=== PATIENT | male | born 1995 | race Hispanic/Latino ===

== ENCOUNTER 2017-04-25 06:23 | Emergency (ER) | payer SELFPAY ==
[2017-04-25] MEDS ORDERED: Ketorolac Tromethamine 30 MG/ML VIAL ONE (07:02)
[2017-04-25 07:42] LABS: #Eosinphils 0.1 thou/uL (0.0-0.7); #Lymphocytes 1.3 thou/uL (1.20-3.40); #Monocytes 0.5 thou/uL (0.11-0.59); #Neutrophils 6.7 thou/uL (1.40-6.50); %Basophils 0.4 % (0.0-1.0); %Eosinophils 1.2 % (0.0-10.0); %Lymphocytes 14.8 % (21.0-51.0); %Monocytes 5.9 % (0.0-10.0); Mean Platelet Volume 8.7 fL (7.4-10.4); Red Blood Cell (RBC) Count 5.35 mill/uL (4.70-6.10); White Blood Cell (WBC) Count 8.7 thou/uL (4.8-10.8)
[2017-04-25 08:06] LABS: ALT (SGPT) 144 U/L (8-55); AST (SGOT) 41 U/L (5-34); Alkaline Phosphatase 93 U/L (40-150); Anion Gap 17 mmol/L (10-20); BUN (Urea Nitrogen) 10 mg/dL (8.9-20.6); Bilirubin, Total 0.5 mg/dL (0.2-1.2); Calc. Creatinine Clearance 0 mL/min (70-130); Calcium 9.7 mg/dL (7.8-10.44); Carbon Dioxide 23 mmol/L (22-29); Chloride 100 mmol/L (98-107); Estimated GFR-MDRD 69; Globulin 3.8 g/dL (2.4-3.5); Lipase 20 U/L (8-78); Protein, Total 8.3 g/dL (6.0-8.3)
--- NOTE | 2017-04-25 08:08 | CT ---
CT OF ABDOMEN AND PELVIS: DATE: 04/25/17. COMPARISON: None. HISTORY: Right-sided flank pain, right lower quadrant pain. TECHNIQUE: Serial axial CT imaging obtained at 5 mm intervals from lung bases through pubic symphysis with intr avenous contrast. Coronal reformatted imaging obtained. FINDINGS: The lack of oral contrast limits assessment of the bowel. The imaged lung bases are unremarkable. There is no free intraperitoneal air or fluid noted. There is diffuse low density within the hepatic parenchyma, evidence of hepatic steatosis. This sauceda its assessment for hepatic lesion. The spleen, pancreas, gallbladder, and adrenal glands appear unr emarkable. There is a slightly delayed nephrogram on the right with mild right-sided hydronephrosis and hydrour eter. There is an obstructing stone within the distal right ureter near the right ureterovesicular junction on axial image 89, coronal image 82, measuring up to approximately 3 mm. There is an intrarenal stone within the lower pole of the right kidney as well, measuring 2-3 mm. T here is a nonobstructing 2-3 mm stone in the upper pole of the left kidney. No evidence for obstruc tive uropathy is seen on the left. The colon is decompressed and not well assessed on this exam. The appendix appears grossly unremark able. There is no evidence for bowel obstruction or lymphadenopathy. There is a circumaortic left renal vein. No acute osseous abnormality is seen. IMPRESSION: 1. Punctate bilateral renal calculi. Obstructing 3 mm stone noted within the distal right ureter a t the level of the right ureterovesicular junction. 2. Hepatic steatosis. POS: [facility]
[2017-04-25 08:10] LABS: Bilirubin Negative (Negative); Blood, Urine Moderate (Negative); Glucose, Urine (Dipstick) 100 mg/dL (Negative); Ketone, Urine Negative (Negative); Nitrite Negative (Negative); Protein, Urine (Dipstick) Negative (Neg-Trace); Urobilinogen 0.2 mg/dL (0.2-1.0)
[2017-04-25 08:12] LABS: Bacteria/HPF None Seen HPF (None Seen); Hyaline Casts/LPF 0-3 HYALINE CAST LPF (0-3 Hyaline); RBC/HPF 21-50 HPF (0-3); Squamous Epithelial None Seen HPF (0-3); WBC/HPF 0-3 HPF (0-3)
[2017-04-25] MEDS ORDERED: Iopamidol 370 76% 100 ML VIAL ONE (16:33)
== END 2017-04-25 08:27 | disposition home or self-care (01) ==
LOC: MERGE 06:23 → ERS 06:23
DX: N13.2 Hydronephrosis with renal and ureteral calculous obstruction (principal)
CPT/HCPCS: 36415; 74177; 80053; 81003; 81015; 83690; 85025; 96361; 96374; 96375; J1885; J2270